=== PATIENT | female | born 1975 | race Caucasian/White ===

== ENCOUNTER 2023-01-25 14:17 | Outpatient (OUT) | payer OTHER, SELFPAY ==
--- NOTE | 2023-01-25 14:23 | XR_ITS ---
The [address] [address] Patient Name: RUSSELL GARCIA MRN: [id number] date: 1975 Sex: F Assigned Patient Location: RAD Current Patient Location: [facility] Accession/Order Number: [id number] Exam Date: 01/25/2023 14:25 Report Date: 01/25/2023 15:20 At the request of: DOM BARRERA Procedure: XR foot RT min 3V EXAM: XR foot RT min 3V HISTORY: Foreign Body Right Foot , Puncture Foot COMPARISON: None. TECHNIQUE: 3 views of the right foot FINDINGS and impression: There is no acute fracture or dislocation. There is a 0.2 x 0.6 cm radiopaque density within the medial forefoot soft tissue, the level of the distal first metatarsal shaft, representing foreign body. Electronically authenticated by: ALEXIS ANDRADE Date: 01/25/2023 15:20
== END 2023-01-25 14:18 | disposition home or self-care (01) ==
LOC: RAD 14:20
PROVIDERS: PCP Family Medicine; Visit Provider Nurse Practitioner Family
DX: S91.341A Puncture wound with foreign body, right foot, initial encounter (principal)
CPT/HCPCS: 73630